=== PATIENT | male | born 1955 | race African-American/Black ===

== ENCOUNTER 2016-12-22 19:33 | Emergency (ER) | payer MEDICARE, OTHER ==
--- NOTE | ~2016-12-22 | EKG ---
PATIENT: JARETT BERNABE UNIT #: [id number] Ventricular Rate: 71 BPM Atrial Rate: 71 BPM P-R Interval: 116 ms QRS Duration: 86 ms Q-T Interval: 416 ms QTC Calculation(Bezet): 452 ms P [place]: 59 degrees Calculated R [place]: 56 degrees Calculated T [place]: 68 degrees Diagnosis Line: Sinus rhythm with Premature atrial complexes Diagnosis Line: Otherwise normal ECG Diagnosis Line: No previous ECGs available Diagnosis Line: Confirmed by PRISCILLA DIAZ MD ([id number]) on Diagnosis Line: 12/23/2016 11:26:11 AM INTERPRETING MD: JOE GEORGES
--- NOTE | ~2016-12-22 | CT16 ---
[facility] A Service of [facility] RADIOLOGY TEXT RESULTS PATIENT: JARETT BERNABE LOCATION: [facility] : 57 UNIT #: [id number] AGE: [address]: Jae Molina MD SEX: M ORDER DR: [id number] [facility] [address] [place], [place] [address] [id number] E MR#: [id number] Acc #: [id number] NAME: JARETT BERNABE : 1955 SEX: M STUDY DATE/TIME: 12/22/2016 20:32 UNIT: [facility] ROOM: STUDY DESCRIPTION: CT Angio Chest for PE Attending Physician: Jae Molina M.D. Ordering Physician: Jae Molina M.D. Primary Care Physician: Singh Deleon M.D. MEDICAL IMAGING REPORT This report is preliminary unless electronic signature is present EXAM CTA chest, 12/22/2016. INDICATION Chest pain. Elevated D-dimer. Recent pneumonia. TECHNIQUE CT angiography of the chest utilizing 80 mL Isovue-370 IV contrast. Coronal 3-D MIP reconstructions and standard sagittal reconstructions were obtained. This CT exam was performed with one or more of the following radiation dose reduction techniques: automatic exposure control, adjustment of mA and/or kV according to patient size, and iterative reconstruction. COMPARISON Chest radiograph dated 12/22/2016. FINDINGS Respiratory motion limits evaluation of the pulmonary arteries, however, no central pulmonary embolus. No thoracic aortic aneurysm or dissection. 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 No pericardial or pleural effusion. No thoracic aortic aneurysm or dissection. There is mild paraseptal and centrilobular emphysema. Airspace opacities in both lung bases have the appearance most typical for atelectasis. Mild bronchial wall thickening can be seen in the setting of acute or chronic bronchitis. There is moderate bilateral gynecomastia. No acute osseous abnormalities. IMPRESSION 1. No central pulmonary embolus. There is some motion artifact which precludes evaluation of the peripheral pulmonary arteries. 2. Dependent airspace opacities in both lung bases. This has the [facility] A Service of [facility] RADIOLOGY TEXT RESULTS PATIENT: JARETT BERNABE LOCATION: [facility] : 57 UNIT #: [id number] AGE: [address]: Jae Molina MD SEX: M ORDER DR: appearance most typical for atelectasis. 3. Moderate to severe gynecomastia. 4. Emphysema. 5. Postsurgical change of CABG. Dictated by... Migue Kang M.D. THIS IS AN ELECTRONICALLY VERIFIED REPORT Migue Kang M.D. at 12/23/2016 12:16 PM MARIA LUZ/sulaiman TD: 12/23/2016 10:51 JOB #: [id number] MEDICAL IMAGING REPORT COPY
--- NOTE | ~2016-12-22 | CR72 ---
[facility] A Service of [facility] RADIOLOGY TEXT RESULTS PATIENT: JARETT BERNABE LOCATION: [facility] : 57 UNIT #: [id number] AGE: [address]: Jae Molina MD SEX: M ORDER DR: [id number] [facility] [address] [place], [place] [address] [id number] E MR#: [id number] Acc #: [id number] NAME: JARETT BERNABE : 1955 SEX: M STUDY DATE/TIME: 12/22/2016 18:44 UNIT: [facility] ROOM: STUDY DESCRIPTION: CR Chest Single View Portable Attending Physician: Jae Molina M.D. Ordering Physician: Ed Doctor [id number] [facility] Primary Care Physician: Singh Deleon M.D. MEDICAL IMAGING REPORT This report is preliminary unless electronic signature is present EXAM Single view chest INDICATION Chest pain. Shortness of air and cough for 1 day. FINDINGS Single portable AP view of the chest without comparison. Cardiac size is borderline enlarged. 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 No new pulmonary opacities. No focal consolidation. IMPRESSION No acute cardiopulmonary findings. Postsurgical change of CABG. Dictated by... Migue Kang M.D. THIS IS AN ELECTRONICALLY VERIFIED REPORT Migue Kang M.D. at 12/23/2016 12:14 PM Aleshia TD: 12/23/2016 09:56 JOB #: [id number] MEDICAL IMAGING REPORT COPY
[2016-12-22 19:26] LABS: BASOPHIL# 0.1 X10e3 (0-0.3); EOSINOPHIL# 0.3 X10e3 (0-0.7); EOSINOPHIL% 3.2 % (0.0-7.0); HEMATOCRIT 39.8 % (38.0-50.0); LYMPHOCYTE# 1.7 X10e3 (1.0-3.5); LYMPHOCYTE% 18.8 % (17.0-45.0); MEAN CELL VOLUME 84.9 FL (83-96); MEAN CORPUSCULAR HEMOGLOBIN 27.7 PG (28-34); MEAN CORPUSCULAR HGB CONC 32.7 g/dL (30-36); MEAN PLATELET VOLUME 7.7 FL (6.5-11.5); MONOCYTE# 0.5 X10e3 (0-1.0); MONOCYTE% 5.5 % (3.0-12.0); NEUTROPHIL# 6.4 X10e3 (1.5-7.1); NEUTROPHIL% 71.5 % (40-75); PLATELET COUNT 305 X10e3 (140-420); RED BLOOD COUNT 4.68 X10e (3.90-5.60); RED CELL DISTRIBUTION WIDTH 14.5 % (11.0-15.5)
[2016-12-22 19:28] LABS: DIFF IND NO
[2016-12-22 19:29] LABS: POC - CKMB 4.9 ng/mL (0.0-7.9); POC - TROPONIN <0.05 ng/mL (<=0.05)
[2016-12-22 19:30] LABS: PARTIAL THROMBOPLASTIN TIME 22.4 SECONDS (23.5-31.3); PROTHROMBIN TIME (PATIENT) 10.9 SECONDS (9.6-11.5)
[2016-12-22] MEDS ORDERED: VICODIN ES 7.51 EAC1 PO (19:38)
[2016-12-22] MEDS ORDERED: ST. JOSEPH ASP325 MG PO (19:39)
[2016-12-22] MEDS ORDERED: METOPROLOL TAR25 MG PO (19:39)
[2016-12-22] MEDS ORDERED: GLUCOTROL XL10 MG PO (19:39)
[2016-12-22] MEDS ORDERED: LANTUS100 U/ML SUBQ (19:39)
[2016-12-22] MEDS ORDERED: ZESTRIL40 MG PO (19:40)
[2016-12-22] MEDS ORDERED: PROTONIX PO (19:40)
[2016-12-22] MEDS ORDERED: ISORDIL PO (19:40)
[2016-12-22] MEDS ORDERED: NORVASC PO (19:40)
[2016-12-22 19:42] LABS: ALBUMIN SERUM 3.9 g/dL (3.5-5.0); ALKALINE PHOSPHATASE 86 U/L (32-92); ALT (SGPT) 19 U/L (10-40); AST (SGOT) 19 U/L (10-42); BILIRUBIN, DIRECT 0.1 mg/dL (0.0-0.2); BILIRUBIN,INDIRECT 0.6 mg/dL (0.0-0.9); BILIRUBIN,TOTAL 0.7 mg/dL (0.2-2.0); BLOOD UREA NITROGEN 17 mg/dL (9-23); BUN/CREATININE RATIO 14.16; CALCIUM SERUM 8.8 mg/dL (8.4-10.2); CARBON DIOXIDE 24 mmol/L (22-31); CHLORIDE 99 mmol/L (100-111); CREATININE SERUM 1.2 mg/dL (0.6-1.4); GLOM FILT RATE Estimated ABOVE60 mL/min (>60); GLUCOSE FASTING 188 mg/dL (70-110); POTASSIUM 4.1 mmol/L (3.5-5.1); PROTEIN TOTAL SERUM 7.6 g/dL (6.0-8.3); SODIUM 134 mmol/L (135-145)
[2016-12-22 21:28] LABS: POC - CKMB 1.9 ng/mL (0.0-7.9); POC - TROPONIN <0.05 ng/mL (<=0.05)
== END 2016-12-22 21:50 | disposition home or self-care (01) ==
LOC: CED 19:33
PROVIDERS: Emergency Medicine
DX: R07.89 Other chest pain (principal); I10 Essential (primary) hypertension; J44.9 Chronic obstructive pulmonary disease, unspecified; I25.10 Atherosclerotic heart disease of native coronary artery without angina pectoris; E11.9 Type 2 diabetes mellitus without complications; I73.9 Peripheral vascular disease, unspecified; Z88.5 Allergy status to narcotic agent; F17.210 Nicotine dependence, cigarettes, uncomplicated; Z79.4 Long term (current) use of insulin; Z79.82 Long term (current) use of aspirin; Z79.899 Other long term (current) drug therapy
CPT/HCPCS: 36415; 71010; 71275; 80048; 80076; 82553; 84484; 85025; 85379; 85610; 85730; 93005; 96374; 96375; 99284; J1170; J1885; Q9967

== ENCOUNTER 2017-04-14 16:10 | Emergency (ER) | payer OTHER, MEDICARE ==
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
[~2017-04-14 16:10] MED LIST: GLUCOTROL XL10 MG PO; ISORDIL PO; LANTUS100 U/ML SUBQ; METOPROLOL TAR25 MG PO; NORVASC PO; PROTONIX PO; ST. JOSEPH ASP325 MG PO; VICODIN ES 7.51 EAC1 PO; ZESTRIL40 MG PO
== END 2017-04-14 17:53 | disposition home or self-care (01) ==
LOC: CFTX 16:10 → CED 16:10 → CFTX 17:30
DX: S16.1XXA Strain of muscle, fascia and tendon at neck level, initial encounter (principal); E11.9 Type 2 diabetes mellitus without complications; I10 Essential (primary) hypertension; J44.9 Chronic obstructive pulmonary disease, unspecified; F17.200 Nicotine dependence, unspecified, uncomplicated; Z88.5 Allergy status to narcotic agent; Z79.82 Long term (current) use of aspirin; Z79.4 Long term (current) use of insulin; Z79.899 Other long term (current) drug therapy; V43.52XA Car driver injured in collision with other type car in traffic accident, initial encounter; Y92.410 Unspecified street and highway as the place of occurrence of the external cause
CPT/HCPCS: 72040; 99284